=== PATIENT | female | born 1990 | race Caucasian/White ===

== ENCOUNTER 2017-08-19 13:39 | Emergency (ER) | payer OTHER ==
[~2017-08-19] VITALS: Ht 175.3 cm; Wt 72.6 kg
[~2017-08-19 13:39] MED LIST: ABREVA2 GM TOP; AMOXICILLIN500 M1 PO; BACTRIM DS TAB1 EACH PO; BLEPH-105 ML OPHTHALMIC; CIPRO500 MG PO; CIPROFLOXIN HC2.5 M1 OPHTHALMIC; HYDROCODONE-AP1 EAC6 PO; IBUPROFEN 600600 M1 PO; KEFLEX500 MG PO; MOBIC7.5 MG PO; NOHOMEMEDICATIONS; NORCO 5-325 TA1 EACH PO; PRENATAL PO; ROBAXIN 750 MG750 M1 PO
[2017-08-19 13:55] VITALS: BP 133/79
[2017-08-19] MEDS ORDERED: LIDOCAINE VISC100 ML SWISH&SPIT ×2 (14:01→14:07)
[2017-08-19] MEDS ORDERED: ACETAMINOPHEN-1 EAC1 PO ×2 (14:01→14:07)
[2017-08-19] MEDS ORDERED: AMOXICILLIN500 M1 PO ×2 (14:01→14:07)
== END 2017-08-19 14:20 | disposition home or self-care (01) ==
LOC: M.ERS 13:39
DX: K08.89 Other specified disorders of teeth and supporting structures (principal); Z87.891 Personal history of nicotine dependence